=== PATIENT | male | born 1960 | race Caucasian/White ===

== ENCOUNTER → 2018-06-16 | Outpatient (CLI) | payer BC ==
--- NOTE | 2018-06-16 07:42 | US ---
EXAMINATION TYPE: US gallbladder DATE OF EXAM: 06/16/2018 COMPARISON: NONE CLINICAL HISTORY: R10.11 Right upper quad pain. stomach pain on and off for a year EXAM MEASUREMENTS: Liver Length: 13.5 cm Gallbladder Wall: 0.3 cm CBD: 0.6 cm Right Kidney: 9.5 x 5.2 x 4.6 cm Pancreas: Limited by bowel gas Liver: wnl Gallbladder: multiple stones seen with no wall thickening Evidence for sonographic Lawrence's sign: no CBD: wnl Right Kidney: wnl IMPRESSION: Cholelithiasis
== END | disposition home or self-care (01) ==
LOC: RADUSWWP 07:05
PROVIDERS: ATTEND Family Medicine
DX: K80.20 Calculus of gallbladder without cholecystitis without obstruction (principal)
CPT/HCPCS: 76705

== ENCOUNTER → 2020-05-25 | Outpatient (CLI) | payer BC | END | disposition home or self-care (01) | LOC: LABWHC1 14:36 | PROVIDERS: ATTEND Surgery | DX: Z20.822 Contact with and (suspected) exposure to COVID-19 (principal) | CPT/HCPCS: U0003; C9803 ==

== ENCOUNTER 2020-06-01 07:08 | Day surgery (SDC) | payer BC ==
[2020-05-30 10:39] VITALS: BMI 21.2
[~2020-06-01 07:08] MED LIST: LACTATED RINGERS 1,000 ML IV SCH
[2020-06-01] MEDS ORDERED: LACTATED RINGERS 1,000 ML IV ONE ×2 (07:40)
[2020-06-01] MEDS ORDERED: PROPOFOL 10 MG/ML 20 ML VIAL IV ONE (07:42)
[2020-06-01 07:46] VITALS: RESP 16; TEMP 98.2
[2020-06-01 07:50] LABS: Glucose,Whole Blood 110 mg/dL (75-99)
--- NOTE | 2020-06-01 08:21 | P.PCN ---
Date of Procedure: 06/01/20 Preoperative Diagnosis: Weight loss Screening Postoperative Diagnosis: Duodenal polyp Gastric polyp Poor prep Internal hemorrhoids Procedure(s) Performed: EGD with biopsy Colonoscopy Anesthesia: TONNY Surgeon: David Rod Pathology: other (Biopsies of duodenal polyp, gastric polyp, antrum, esophagus) Condition: stable Disposition: same day Indications for Procedure: 59-year-old male presents today for screening colonoscopy and with recent overall unexplained weight loss. Plan is for upper and lower endoscopy. Patient was explained the risks, benefits and alternatives to the procedure and did provide consent prior to attending the endoscopy suite. Operative Findings: Duodenal polyp Gastric polyp Poor prep Internal hemorrhoids Description of Procedure: The patient was brought into the endoscopy suite. He was then placed in left lateral decubitus position and adequate sedation was achieved using conscious sedation. A bite block was placed and an endoscope was placed in the oropharynx and advanced under endoscopic visualization. The endoscope was advanced through the esophagus into the stomach, through the gastric antrum and into the pylorus. The third portion of the duodenum was visualized. The endoscope was then slowly withdrawn. The first portion of the duodenum was noted to have inflammatory changes and duodenal polyps. Biopsies were taken. The antrum was noted to have mild inflammatory changes. Biopsies were taken. The gastric body distended normally and the gastric folds appeared to have multiple gastric polyps and flattened with insufflation. A retroflexed view of the fundus and GE junction revealed no significant hiatal hernia. Biopsies of gastric polyps was taken. The esophagus appeared endoscopically normal. Biopsies were taken. Excess air was removed and the scope was withdrawn. A digital rectal exam was performed and mild internal hemorrhoids were palpated. An endoscope was then placed in the rectum and advanced to the cecum as identified by landmarks including the appendiceal orifice and the ileocecal valve. The prep was poor with some solid stool still present in the colon, however procedure was able to be completed. The colonoscope was then slowly withdrawn, examining for any mucosal maladies. The cecum, ascending, transverse, descending and sigmoid colon were visualized. No obvious neoplastic lesions were noted. No obvious polyps were noted. There was no evidence of diverticulosis. Retroflexion was performed in the rectum and internal hemorrhoids were visible. Excess air was removed, the colonoscope withdrawn and the procedure terminated. The patient was then transferred to the recovery unit in stable condition. Repeat colonoscopy should be performed in one year based on the poor prep.
[2020-06-01 08:49] VITALS: BP 132/78; PULSE 68
== END 2020-06-01 09:06 | disposition home or self-care (01) ==
LOC: ORWHC2ENDO 07:08
PROVIDERS: ATTEND Surgery
DX: K31.7 Polyp of stomach and duodenum (principal); K29.50 Unspecified chronic gastritis without bleeding; K64.8 Other hemorrhoids; J45.909 Unspecified asthma, uncomplicated; N40.0 Benign prostatic hyperplasia without lower urinary tract symptoms; E11.9 Type 2 diabetes mellitus without complications; Z79.84 Long term (current) use of oral hypoglycemic drugs; Z79.899 Other long term (current) drug therapy
CPT/HCPCS: 88305; 45378; 43239; J2704

== ENCOUNTER → 2021-01-24 | Outpatient (CLI) | payer BC ==
--- NOTE | 2021-01-24 18:00 | CONS ---
CONSULTATION DATE OF SERVICE: 01/24/2021 INTERVAL HISTORY: An 89-year-old gentleman has been evaluated in [facility] for difficulties to initiate sleep before multiple awakenings from sleep. HISTORY OF PRESENT ILLNESS/SLEEP WAKE EVALUATION: The patient usually goes to bed around 930, but falling asleep around 11, and he gets up around 5 or 530 in the morning and this very regular schedule. He does have problems with falling asleep, has TV set in bedroom, usually sleeps on the side position. No snoring according to the patient. He does wake up from sleep up to 4 times and up to 4 episodes of nocturia. He does has a feeling of restless legs while falling asleep and that could be 1 of the reasons why he cannot fall asleep. He is not aware of why he is waking up from sleep so often. No history of hypnagogic hallucinations, sleep paralysis or cataplexy. The patient does not take any naps. Beatty Sleepiness Scale is only 1. PAST MEDICAL HISTORY: Positive for sinus problems, diabetes mellitus, BPH. PAST SURGICAL HISTORY: None. MEDICATIONS: Tamsulosin 0.4 mg twice a day, Janumet once a day, Farxiga once per day, Lantus 20 units once a day. Recently started to use Neurontin 600 mg. SOCIAL HISTORY: Positive for smoking 20 packs years, quit 25 years ago. Alcohol consumption very rarely. FAMILY HISTORY: Cancer and mental illness. REVIEW OF SYSTEMS: Difficulties to initiate sleep, multiple awakenings from sleep. PHYSICAL EXAMINATION: gentleman without distress. BP 154/86, HR 75, RR 12, height 5 feet 8 inches weight, weight 164.8, body mass index 25, temperature 97.8, oxygen saturation at room air 99%. Oropharynx extremely low position of soft palate, Mallampati 4. Neck is 15 inches in circumference. LUNGS: Clear to percussion and to auscultation. Good air exchange. No wheezing or rhonchi. HEART: S1, S2 regular. No murmurs, gallops, or rubs. ABDOMEN: Soft and nontender. Bowel sounds are present. No organomegaly appreciated. EXTREMITIES: No clubbing or cyanosis. CAMPGROUND CARETAKER: Awake, alert, and oriented X3. Cranial nerves 2 to 7 intact. There is no fasciculation or atrophy. noted. No focal deficits observed. IMPRESSION: 1. Restless leg symptoms with difficulties to initiate sleep. 2. Multiple awakenings from sleep, extremely low position of soft palate, Mallampati 4, although no snoring. Differential diagnosis should include obstructive sleep apnea. 3. Multiple awakenings from sleep, possibly periodic limb movements. 4. Diabetes mellitus. May increase risk for restless legs and periodic limb movements. 5. Benign prostatic hypertrophy. 6. Sinus problems. PLAN: 1. Polysomnography to check for periodic limb movements and also to check for patient breathing during sleep. 2. I discussed with the patient psychological techniques for treatment of insomnia including stimulus control, paradoxical intention, worry time, no watching clock in bedroom. 3. Precautions related to driving. No driving if feeling sleepiness. 4. Following plan after reviewing results of polysomnogram. 5. Prescription for trial Mirapex 1 to 2 tablets at bedtime for restless legs. Thank you very much for referring this patient for consultation. Enoc zAul MD, PhD, FAASM Diplomat of [place] [employer] Sleep Medicine [employer] of [place] [employer] [facility] [place] [id number] / PRABHA: [id number] /
== END ==
LOC: SLEEP 15:33
PROVIDERS: ATTEND Internal Medicine
DX: G47.8 Other sleep disorders (principal); G25.81 Restless legs syndrome; E11.9 Type 2 diabetes mellitus without complications; N40.0 Benign prostatic hyperplasia without lower urinary tract symptoms; J34.9 Unspecified disorder of nose and nasal sinuses; Z87.891 Personal history of nicotine dependence; Z79.4 Long term (current) use of insulin
CPT/HCPCS: 99211